=== PATIENT | female | born 1995 | race Caucasian/White ===

== ENCOUNTER 2018-09-05 23:56 | Emergency (ER) | payer OTHER ==
[2018-09-06 00:04] VITALS: BP 141/87
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
== END 2018-09-06 01:43 | disposition home or self-care (01) ==
LOC: ER 23:56
DX: R51 Headache (principal); R42 Dizziness and giddiness; Y04.2XXA Assault by strike against or bumped into by another person, initial encounter; Y99.0 Civilian activity done for income or pay
CPT/HCPCS: 99283

== ENCOUNTER → 2019-03-30 | Outpatient (CLI) | payer BC ==
--- NOTE | 2019-03-30 11:51 | RADIOLOGY REPORT (SQ) ---
EXAM DESCRIPTION: U/S ABDOMEN LIMITED W/O DOP COMPLETED DATE/TIME: 03/30/2019 11:42 am REASON FOR STUDY: R10.9 UNSPECIFIED ABDOMINAL PAIN R10.9 UNSPECIFIED ABDOMINAL PAIN COMPARISON: None. TECHNIQUE: Dynamic and static grayscale images acquired of the abdomen and recorded on PACS. Additio nal selected color Doppler and spectral images recorded. LIMITATIONS: None. FINDINGS: Limited sonographic evaluation of the left upper quadrant shows the spleen to be normal at 9.7 cm. The left kidney is unremarkable and measures 9.9 cm. IMPRESSION: Normal left upper quadrant ultrasound. Limited. TECHNICAL DOCUMENTATION: JOB ID: [id number] [employer]- All Rights Reserved Reading location - IP/workstation name: [email or web address]
== END ==
LOC: RAD 11:12
PROVIDERS: ATTEND Physician Assistant
DX: R10.9 Unspecified abdominal pain (principal)
CPT/HCPCS: 76705

== ENCOUNTER → 2019-08-01 | Outpatient (CLI) | payer BC ==
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
== END ==
LOC: OD 10:11
PROVIDERS: ATTEND Physician Assistant
DX: S99.911D Unspecified injury of right ankle, subsequent encounter (principal); X58.XXXD Exposure to other specified factors, subsequent encounter; M25.571 Pain in right ankle and joints of right foot; M25.471 Effusion, right ankle

== ENCOUNTER 2020-04-08 02:20 | Emergency (ER) | payer BC ==
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
[2020-04-08 06:12] LABS: ABSOLUTE BASOPHILS # (AUTO) 0.1 10^3/uL (0.0-0.2); ABSOLUTE EOSINOPHILS # (AUTO) 0.1 10^3/uL (0.0-0.6); ABSOLUTE LYMPHOCYTES (AUTO) 2.2 10^3/uL (0.5-4.7); ABSOLUTE MONOCYTES (AUTO) 0.8 10^3/uL (0.1-1.4); ABSOLUTE NEUT (AUTO) 5.4 10^3/uL (1.7-8.2); BASOPHILS % (AUTO) 0.6 % (0-2); EOSINOPHILS % (AUTO) 1.6 % (0-6); HEMATOCRIT 39.7 % (36.0-47.0); HEMOGLOBIN 13.5 g/dL (12.0-15.5); LYMPHOCYTES % (AUTO) 25.9 % (13-45); MEAN CORPUSCULAR HEMOGLOBIN 31.4 pg (27.0-33.4); MEAN CORPUSCULAR VOLUME 92 fl (80-97); MONOCYTES % (AUTO) 9.1 % (3-13); PLATELET COUNT 274 10^3/uL (150-450); RED BLOOD COUNT 4.31 10^6/uL (3.72-5.28); SEGMENTED NEUTROPHILS % (AUTO) 62.8 % (42-78); TOTAL CELLS COUNTED % (AUTO) 100 %; WHITE BLOOD COUNT 8.5 10^3/uL (4.0-10.5)
[2020-04-08 06:25] LABS: ACETAMINOPHEN < 10 ug/mL (10-30); ALBUMIN 4.6 g/dL (3.5-5.0); ALCOHOL < 10 mg/dL (NONE DETECTED); ALKALINE PHOSPHATASE 73 U/L (38-126); ANION GAP 10 (5-19); ASPARTATE AMINO TRANSFERASE 45 U/L (14-36); BILIRUBIN,DIRECT 0.1 mg/dL (0.0-0.4); BILIRUBIN,TOTAL 0.7 mg/dL (0.2-1.3); BLOOD UREA NITROGEN 13 mg/dL (7-20); CALCIUM 10.1 mg/dL (8.4-10.2); CARBON DIOXIDE 27 mmol/L (22-30); CHLORIDE 104 mmol/L (98-107); GLUCOSE 109 mg/dL (75-110); POTASSIUM 4.1 mmol/L (3.6-5.0); SALICYLATE < 1.0 mg/dL (2.0-20.0); TOTAL PROTEIN 7.8 g/dL (6.3-8.2)
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
--- NOTE | 2020-04-08 14:16 | EKG REPORT ---
SEVERITY:- BORDERLINE ECG - ECTOPIC ATRIAL NERSUS JUNCTIONAL RHYTHM : Confirmed by: Genevieve Allen MD 08-Apr-2020 14:16:12
--- NOTE | 2020-04-08 15:41 | PSYCHOLOGICAL NOTE ---
Psych Note - Psych Note Date seen by psych provider: 04/08/20 Time seen by psych provider: 10:58 Psych Note: Reason for Consult: maria del carmen and auditory hallucinations [id number] Patient is a 24 year old female who was admitted to the ED via electrical control assembler and petitioned for IVC for manic episode and auditory hallucinations. Upon entering the room, patient awoke, startled and asked clinician if clinician heard the sound above patients head. Clinician inquired about the sound of the fan and patient asked, Is that what it is? It sounds like it is a bit behind me. Clinician confirmed a fan-like object in the ceiling which was in fact making a blowing noise. Patient appeared to relax a bit. She stated she was in the ED because We couldnt hear [place]. In my brain she is my exs ex. I cant prove what I am saying. Patient reports she lives alone with her two dogs. She denies suicidal and homicidal ideations, plan, and intent. She reports she used to be involved in therapy and medication management, but has stopped and cannot remember how long it has been or where she went. She reports history of depression. 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 Patient reports baseline is hearing voices. She states she has been hearing voices and sounds for as long as she can remember. She reports this time it is worse than it has ever been and states, I have always heard something, but this level is new. I feel like I am in a tin can. She reports this asad has bene staying in her home and states she has never seen him in person. When asked for his name she stated she did not feel comfortable sharing at this time. She reports she went to an inpatient hospital around age 13-15, but was unable to report why. She continues to refer to her friend who has been staying with her and feels like she is being watched. Patient reports she can hear her mother from time to time, but recently has not been able to tell the difference in the sounds she is hearing. She reports history of trauma in her home and states she might be hearing things due to this. Patient reports this is the clearest the sounds have been, in the past day. She reports this time is different and she feels like people are just pointing and laughing at her. She reports hearing sound and voices is normal and she knows those around her do not hear what she hears. She states she can see that others are not responding to the sounds and states she will often ask others if they heard what she heard to clarify if it is real or not. Clinician inquired about the fan sound when entering the room and patient stated she was trying to see what was real. She reports her friend who is staying with her is manipulative (earlier reports she has not actually seen him, but is unable to clarify). Patient states she did use marijuana and is unsure if it was laced with something, but suspects it was. She reports her friend has coke and she knows he does and feels as if she has been given drugs. She states this past week she feels like she has been getting good sleep, but weird good sleep. She is unable to provide details on this. Patient reports to clinician her night in the ED was awful. She reports that she was not treated like a human and this encounter was the first she was able to feel like she was not crazy. She reports she knows she is crazy, but she deserves to feel like a human. She reports she can read minds and the night crew staff was thinking negative thoughts about her. When asked about thinking she was able to hear thoughts, patient clarified she can hear others thoughts. Patient reports, If you know I can hear your thoughts, then dont think rude things in front of me. The night crew ladtyesha was thinking Shut the f- up when she was dealing with me. She was inquiring about speaking to Dr. Molina and seeing her IVC. Patient was informed clinician works on the team for Dr. Molina and [facility] and will be calling them today to staff with them regarding her case. She was informed upon discharge that she was able to request medical records, but at this time, clinician is unable to provide her with her IVC copy. Clinician did inform patient what was in the IVC and reported to patient that it was completed by the (which patient was aware) and that it stated she was in a manic state, experiencing auditory hallucinations in her home, and she is not taking care of herself. Clinician discussed with patient the IVC pretty much states what she is describing in the evaluation. Patient stated she is not a danger to herself. Clinician discussed patients paranoia and discussed wanting to help her feel less anxious and paranoid on a day to day basis. 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 She reports taking Xanax in the past and not liking it. Patient was informed medications such as Xanax and Ativan are very rarely used by behavioral health team for prescriptions and are sometimes used as prn medications in the ED. Clinician reminded patient that clinician is not medical and was going to discuss with the behavioral health team what steps to take next. Collateral was completed by behavioral health team. Refer to Sly Kimble note dated today, [id number] Checked back in with patient. Clinician updated patient about being under full IVC and the plans to start medications and re-evaluate in the morning. Patient began to cry and appeared to be having a panic attack. Clinician sat with patient and discussed benefits to medication and plans to start at a small dose. Clinician talked with patient as her anxiety was increasing and utilized deep breathing to help decrease current anxiety level. Patient reported wanting medication to help her feel less anxious at this time. Patient asked to call her aunt and was allowed to call, however aunt did not answer at this time. [id number] Checked back in with patient. Patient was observed pacing the room earlier. Patient does present much less anxious and less paranoid than earlier. She reports wanting the medication to help her feel less anxious. Clinician and patient talked a while and patient was calm and able to carry on a conversation in an appropriate manner. She did ask questions to verify what was real and what might have been in her dream, such as seeing a member in [facility], which was confirmed was real and he was visiting another patient. She asked about it being a friend of "Jesús" and clinician was unsure. Patient reported she must have dreamed this. Clinician remained in the room when medications were administered. Patient was compliant and cooperative. Clinician inquired about food intake and patient states she lost about 30 pounds in the last 3-4 months and does not have an appetite when she is anxious. Patient requested clinician check back in before leaving. She was informed that she would be re- evaluated in the morning by another member of the team and still remains on IVC. Patient reported understanding and being thankful. Patient was alert and oriented to self, person, place, and time. She presented confused on details of the situation. Mood was paranoid and anxious with congruent affect. She denies current suicidal and homicidal ideation, plan, and intent. Patient did not appear to be responding to internal stimuli as evidenced by fair eye contact and answering questions appropriately when addressed. Thought processes are disorganized. Conversational speech was within normal limits for rate, tone and prosody. Intellectual abilities are estimated to be average. Insight and judgment were poor as evidenced by feeling as if people are pointing and laughing at her and stating she feels as if she is being followed. Impulse control was poor as evidenced by aunt reporting reckless behaviors. Patient engages inappropriately due to constant paranoia and being fixated on seeing her IVC. She demonstrates future forward goal oriented thinking as she talks about taking care of her dogs and stating she plans to stop using drugs such as marijuana. Later she states she will go stay with her mother in [place]. Clinical Presentation: maria del carmen, paranoia, auditory hallucinations IVC Criteria per [place] 122C Dangerous to others Within the relevant past the individual No has inflicted or attempted to inflict or threatened to inflict serious bodily harm on another AND No that there is a reasonable probability that this conduct will be repeated. OR Yes has acted in such a way as to create a substantial risk of serious bodily harm to another Per aunt, patient was driving recklessly, driving fast, weaving in and out of cars, and not stopping at stop signs; threatened her friend and friends family AND Yes that there is a reasonable probability that this conduct will be repeated. Per aunt, patient has been decompensating over the past few months; without treatment she is likely not going to improve; paranoia seems to worsen as she is in the ED, as she is pacing her room and talking to someone in room, although she is alone. OR No has engaged in extreme destruction of property AND NO that there is a reasonable probability that this conduct will be repeated. Previous episodes of dangerousness to others, when applicable, may be considered when determining reasonable probability of future dangerous conduct. Clear, cogent, and convincing evidence that an individual has committed a homicide in the relevant past is prima facie evidence of dangerousness to others. Dangerous to self Within the relevant past the individual has done any of the following: acted in such a way as to show ALL of the following: Yes The individual would be unable without care, supervision, and the continued assistance of others not otherwise available, to exercise self- control, judgment, and discretion in the conduct of the individual's daily responsibilities and social relations or to satisfy the individual's need for nourishment, personal or medical care, snf, or self-protection and safety. Patient has not been bathing or taking care of herself or home; dogs have been going to the restroom in the home and it is completely destroyed AND Yes There is a reasonable probability of the individual suffering serious physical debilitation within the near future unless adequate treatment is given. A showing of behavior that is grossly irrational, of actions that the individual is unable to control, of behavior that is grossly inappropriate to the situation, or of other evidence of severely impaired insight and judgment shall create a prima facie inference that the individual is unable to care for himself or herself. Patient does not want treatment or medications and does not want to stay with her mother who is willing to help and take care of patient; she quit her job, has no income, and no insurance OR No has attempted suicide or threatened suicide AND No that there is a reasonable probability of suicide unless adequate treatment is given OR No has mutilated himself or herself or attempted to mutilate himself or herself AND No that there is a reasonable probability of serious self-mutilation unless adequate treatment is given. NOTE: Previous episodes of dangerousness to self, when applicable, may be considered when determining reasonable probability of physical debilitation, suicide, or self-mutilation. Medication recommendations per [facility] contracted psychiatrist, Dr. Deniz NICOLE, are as follows: start Zyprexa 2.5mg twice a day; add Thorazine 50mg every 6 hours as needed Impression\\plan: Patient is recommended for full IVC. She is a danger to self and others. Patient was brought to the ED via [facility] due to manic episode, auditory hallucinations, paranoia, not taking care of self, and threatening her friend and friends family. Patient reports feeling as if she is being followed. She states her baseline includes hearing voices and sounds, but she feels as if this is the worst it has ever been. Patient is not currently involved in outpatient services. She quit her job about 2 months ago and aunt reports since then she has been depression, not getting up, not taking care of self, and not taking care of her dogs and house. Patient reports feeling paranoid and like she is being followed. She quit her job due to paranoia and current mental state. She reports using marijuana and feels as if it might have been laced with something. She presents anxious and paranoid. Medications have been started and patient will be re-evaluated tomorrow, 04.09.2020. Dr. Molina was consulted to care management of this patient; attending physicians in agreement with recommendations and disposition. Case management: 152Savage Wang from [facility] mobile crisis called inquiring about efraín eliud; was informed she is on full IVC and is still at ED; is asking for update about dc or inpatient for [facility] follow up; [phone]
[2020-04-08 17:21] LABS: AMORPHOUS SEDIMENT,URINE 1+ /HPF; APPEARANCE,URINE CLOUDY; BILIRUBIN,URINE NEGATIVE (NEGATIVE); COLOR,URINE YELLOW; GLUCOSE, URINE NEGATIVE (NEGATIVE); KETONES,URINE NEGATIVE (NEGATIVE); LEUKOCYTE ESTERASE,URINE NEGATIVE (NEGATIVE); NITRITE,URINE NEGATIVE (NEGATIVE); PROTEIN,URINE 30 mg/dL (NEGATIVE); URINE SPECIFIC GRAVITY 1.019; UROBILINOGEN,URINE NEGATIVE mg/dL (<2.0)
[2020-04-08 17:31] LABS: URINE BARBITURATES SCREEN NEGATIVE; URINE BENZODIAZEPINES SCREEN NEGATIVE; URINE COCAINE SCREEN NEGATIVE; URINE METHADONE SCREEN NEGATIVE; URINE PHENCYCLIDINE SCREEN NEGATIVE
[2020-04-08 17:39] LABS: URINE AMPHETAMINES SCREEN UNCONFIRMED POSITIVE; URINE MARIJUANA (THC) SCREEN UNCONFIRMED POSITIVE
[2020-04-08] MEDS ORDERED: CHLORPROMAZINE HCL INJ 25 MG/1 ML AMPULE IM PRN (18:05)
[2020-04-08] MEDS: OLANZAPINE 2.5 MG TABLET PO SCH (18:13)
--- NOTE | 2020-04-08 18:19 | ER Document Report ---
Doctor's Note Notes: 04/08/20 18:14 Pharmacy completed med reconciliation. Per pharmacy, I ordered Zyprexa 2.5 mg p.o. twice daily, and Thorazine 50 mg IM every 8 hours as needed. 04/08/20 18:16 I reviewed patient's labs. UDS was positive for amphetamines and marijuana. Very small elevation of LFTs but none concerning. Moderate blood in UA but without signs of infection. Vital signs are stable. Patient is medically cleared from an ER standpoint.
[2020-04-09] MEDS ORDERED: CHLORPROMAZINE HCL 50 MG TABLET PO ONE (04:33)
[2020-04-09] MEDS: OLANZAPINE 2.5 MG TABLET PO SCH ×2 (09:32→17:43)
--- NOTE | 2020-04-09 15:13 | PSYCHOLOGICAL NOTE ---
Psych Note - Psych Note Date seen by psych provider: 04/09/20 Time seen by psych provider: 10:20 Psych Note: Reason for Consult: IVC Patient [facility] under 24 hour petition for evaluation for concerns of maria del carmen with paranoia. Patient was placed on Full IVC yesterday after evaluation. Check in Conducted with patient: Patient is easily startled awake when just stating her name. She reports the past experience of seeing or hearing anything was yesterday here at [facility]. She reports she has been having increased difficulties with her mental health symptoms for the last 2 months. She disclosed she has had issues in the past with amphetamines but reports she has it under control and is no longer a problem (patient is probable positive for amphetamines). Patient admitted to using "not that long ago because it makes me feel normal....I am always so tir ed." Clinician spoke with the patient's mother. She reports she lives about 5 hours away and is planing to drive in to [place] tomorrow morning. She is concerned the patient has been struggling for the last 2 months. She confirms the patient aunt is here locally currently but was only planing on staying until Tuesday. She reports she is hoping to convince the patient to come home with them tomorrow so they can help her. Medication recommendations per [facility] contracted psychiatrist are as follows: Zyprexa 2.5mg twice a day Thorazine 50mg every 6 hours as needed Impression/Plan: Patient is recommended for continued IVC. Patient continues to demonstrate hypervigilance and is easily startled when just saying her name. Patient originally presented for paranoia with hallucinations. She was started on medications. Patient's family will be here tomorrow to assist in building a plan of care for the patient. Dr. Molina was consulted on the care and management of this patient; attending physician is in agreement with recommendations and disposition.
--- NOTE | 2020-04-09 22:05 | ER Document Report ---
Doctor's Note Notes: Patient reassessed and she is doing well with no complaints at this time. She denies chest pain, shortness of breath and abdominal pain. Psych plans to meet with her family in the morning to put plans in place for outpatient treatment. Patient is doing much better now that she is on medications. PHYSICAL EXAMINATION: GENERAL: Well-appearing, well-nourished and in no acute distress. HEAD: Atraumatic, normocephalic. EYES: sclera anicteric, conjunctiva are normal. ENT: Moist mucous membranes. NECK: Normal range of motion LUNGS: Normal work of breathing EXTREMITIES: no pitting or edema. No cyanosis. NEUROLOGICAL: No focal neurological deficits. Moves all extremities spontaneously and on command. PSYCH: Normal mood, normal affect. SKIN: Warm, Dry, normal turgor, no rashes or lesions noted. 04/09/20 20:04 Sign out given to the overnight APC.
[2020-04-10] MEDS ORDERED: CHLORPROMAZINE HCL 50 MG TABLET PO ONE (00:10)
[2020-04-10] MEDS ORDERED: CHLORPROMAZINE HCL 50 MG TABLET PO PRN (00:10)
--- NOTE | 2020-04-10 00:12 | ER Document Report ---
Doctor's Note Notes: 04/10/20 00:12 Patient's primary nurse reported that the patient was feeling a little anxious. Reviewed the patient's chart. Mental health has recommended Zyprexa 2.5 mg twice a day and Thorazine 50 mg every 6 hours as needed. The Thorazine is not ordered. We will give her a one-time dose and will order the as needed order.
[2020-04-10] MEDS ORDERED: IBUPROFEN 400 MG TABLET PO ONE (08:47)
--- NOTE | 2020-04-10 08:50 | ER Document Report ---
Doctor's Note Notes: 04/10/20 08:45 Patient reevaluated, sleeping and easily aroused, she states that the bed is making her back feels sore but she denies any other complaints. She denies chest pain, abdominal pain, fever, nausea/vomiting. She states she actually feels a lot better after starting the Zyprexa, she states her head "feels quiet ". She states she is hoping to go home. Based on records there was still a decision to be made whether patient needed inpatient psychiatric care for acute psychosis/schizophrenia versus going home. Patient to be seen by the mental health team this morning for disposition. Patient remains medically cleared.
[2020-04-10] MEDS: OLANZAPINE 2.5 MG TABLET PO SCH (11:06)
[2020-04-10] MEDS ORDERED: HYDROXYZINE PAMOATE 25 MG CAPSULE (4 CAP/ER DISP) PO PRN (11:20)
[2020-04-10 11:51] VITALS: BP 112/70
--- NOTE | 2020-04-10 12:13 | PSYCHOLOGICAL NOTE ---
Psych Note - Psych Note Date seen by psych provider: 04/10/20 Time seen by psych provider: 10:88 - [id number] Psych Note: Reason for Consult:Manic Consent Permissions: Patient's mother, father, and aunt at bedside per patient's request Patient presented to [facility] Ed under 24 hour petition for evaluation for concerns of maria del carmen with paranoia. Patient was placed on Full IVC after evaluation. Check in Conducted with patient: Patient and family engaged with clinician to build the patient's plan of care. Patient is no longer demonstrating behaviours of maria del carmen, is calmly laying on the bed with a normal conversational speech. Patient agrees to continued medication management and therapeutic services. Patient confirms she will engage in DBT to address her symptoms, triggers, and coping skills. IVC Criteria per [facility] 122C Dangerous to others Within the relevant past the individual No has inflicted or attempted to inflict or threatened to inflict serious bodily harm on another AND No that there is a reasonable probability that this conduct will be repeated as there is an absence of supervision or structure to prevent. OR No has acted in such a way as to create a substantial risk of serious bodily harm to another AND No that there is a reasonable probability that this conduct will be repeated as there is an absence of supervision or structure to prevent. OR No has engaged in extreme destruction of property AND NO that there is a reasonable probability that this conduct will be repeated as there is an absence of supervision or structure to prevent. Previous episodes of dangerousness to others, when applicable, may be considered when determining reasonable probability of future dangerous conduct. Clear, cogent, and convincing evidence that an individual has committed a homicide in the relevant past is prima facie evidence of dangerousness to others. Dangerous to self Within the relevant past the individual has done any of the following: acted in such a way as to show ALL of the following: No The individual would be unable without care, supervision, and the continued assistance of others not otherwise available, to exercise self- control, judgment, and discretion in the conduct of the individual's daily responsibilities and social relations or to satisfy the individual's need for nourishment, personal or medical care, penitentiary, or self-protection and safety. AND No There is a reasonable probability of the individual suffering serious physical debilitation within the near future unless adequate treatment is given. A showing of behavior that is grossly irrational, of actions that the individual is unable to control, of behavior that is grossly inappropriate to the situation, or of other evidence of severely impaired insight and judgment shall create a prima facie inference that the individual is unable to care for himself or herself. Patient is no longer demonstrating manic behaviours and is able to engage in appropriate conversations. She has been started on medication and made the decision to go home with family and stay with them until further treatment is received. OR No has attempted suicide or threatened suicide AND No that there is a reasonable probability of suicide unless adequate treatment is given as there is an absence of supervision or structure to prevent suicide of patient who has made an attempt, serious gesture or threat. OR No has mutilated himself or herself or attempted to mutilate himself or herself AND No that there is a reasonable probability of serious self-mutilation unless adequate treatment is given as there is an absence of supervision or structure to prevent. NOTE: Previous episodes of dangerousness to self, when applicable, may be considered when determining reasonable probability of physical debilitation, suicide, or self-mutilation. Medication recommendations per [facility] contracted psychiatrist are as follows: Zyprexa 2.5mg twice daily for mood stabilization Impression\plan: Patient is recommended for rescind of IVC and is cleared from acute psychiatric services; paperwork is signed and placed in patient's chart. Patient is no longer demonstrating manic behaviors. She is able to engage in organized linear conversation. Denies any auditory visual hallucinations. Is able to lay calmly in the bed while discussing plan of care and assist in building her plan. Patient is recommended to follow-up with outpatient mental health services for both medication management therapeutic services. It is recommended that she engage in DBT to assist in interpreting her environment, understanding her triggers and building her positive coping skills. Patient will be returning with her family to her parents home during her start of treatment. They agree to be be part of the patient's plan of care i.e. no access to medications weapons and will follow through with mental health recommendations. Patient is encouraged to engage in self-care and not to self medicate. Family is encouraged to have the patient return if new or worsening symptoms occur; they agree. At this time family and patient have no concerns of the patient being discharged into their care. Dr. Molina was consulted to care management of this patient; attending physicians in agreement with recommendations and disposition.
== END 2020-04-10 11:31 | disposition home or self-care (01) ==
LOC: ER 02:20
DX: Z04.6 Encounter for general psychiatric examination, requested by authority (principal); F20.9 Schizophrenia, unspecified; Z75.1 Person awaiting admission to adequate facility elsewhere; R79.89 Other specified abnormal findings of blood chemistry
CPT/HCPCS: 93005; 99284; 96372; 36415; 80307 ×4; 85025; 80053; 81001; 93010; J3230; J3490 ×7